=== PATIENT | male | born 1990 | race Caucasian/White ===

== ENCOUNTER 2020-06-03 22:16 | Emergency (ER) | payer OTHER, MEDICAID, SELFPAY ==
--- NOTE | 2020-06-03 22:19 | ED_ITS ---
HPI - Chest Pain General Chief Complaint: Chest Pain Stated Complaint: pain in left arm, wants heart checked Time Seen by Provider: 06/03/20 22:19 Source: patient Mode of arrival: Ambulatory Limitations: no limitations History of Present Illness HPI narrative: 29M smoker with history of HTN presents with a brief episode of left posterior arm pain that resolved prior to his arrival. He states he was resting when the pain came and was without provocation, palliation, or radiation. He denies associated symptoms such as dizziness, weakness, lightheadedness, chest pain, or shortness of breath. He denies any exertional symptoms, diaphoresis or other red flag symptoms. He has had syimilar episodes a few times in the past few years and states he came tonight because he finally has insurance. He denies any overuse or abnormal activities with his left arm. He denies any recent injury. He denies any travel. He has no head or neck pain. MD complaint: other Onset (ago): hour(s) Duration: now resolved Onset: during rest Pain location: other Severity: mild Quality: sharp Pain radiation: none Relieving factors: nothing Exacerbating factors: nothing Treatments prior to arrival chest pain: none Related Data Previous Rx's Medication Instructions Recorded silver sulfadiazine 1 % topical 1 applictn TOP BID #25 gram 09/27/19 cream Allergies Allergy/AdvReac Type Severity Reaction Status Date / Time No Known Drug Allergies Allergy Verified 09/27/19 12:54 Review of Systems Constitutional Constitutional: Denies chills, Denies fatigue, Denies fever(s), Denies frequent falls, Denies lethargy and Denies weakness Eyes Eyes: Denies change in vision, Denies eye discharge, Denies irritation and Denies loss of vision ENT Ears, Nose, Mouth, and Throat: Denies change in voice, Denies dizziness, Denies neck pain, Denies sore throat and Denies throat swelling Cardiovascular Cardiovascular: Denies chest pain, Denies irregular heart rhythm, Denies lightheadedness, Denies palpitations, Denies dyspnea, Denies dyspnea on exertion and Denies orthopnea Respiratory Respiratory: Denies cough, Denies dyspnea, Denies dyspnea on exertion and Denies wheezing Gastrointestinal Gastrointestinal: Denies abdominal pain, Denies change in bowel habits, Denies diarrhea, Denies nausea and Denies vomiting Musculoskeletal Musculoskeletal: Denies neck pain and Denies numbness Comments: Left arm pain Integumentary/Breasts Skin/Breast: Denies pruritus, Denies erythema, Denies rash and Denies wounds Neurologic Neurologic: Denies behavioral changes, Denies confusion, Denies dizziness, Denies frequent falls, Denies loss of vision, Denies numbness and Denies weakness Psychiatric Psychiatric: Denies anxiety, Denies behavioral changes, Denies confusion, Denies depression, Denies homicidal ideation and Denies suicidal ideation Endocrine Endocrine: Denies fatigue, Denies flushing and Denies palpitations Hematologic/Lymphatic Hematologic/Lymphatic: Denies easy bruising Allergic/Immunologic Allergic/Immunologic: Denies urticaria, Denies throat swelling and Denies wheezing Patient History Social History Smoking Status: Current every day smoker Smoking Status: Current every day smoker alcohol intake frequency: 0-2 drinks per day Substance Use Type: does not use Exam Narrative Exam Narrative: GENERAL: [29] year old patient appears stated age. Well- nourished, well-developed patient, in mild distress. HEAD: Atraumatic. Normocephalic. EYES: Pupils equal round and reactive. Extraocular motions intact. No scleral icterus. No injection or drainage. ENT: Nose without bleeding, purulent drainage. Throat without erythema, tonsillar hypertrophy or exudate. Airway patent. NECK: Trachea midline. Non tender CARDIOVASCULAR: Regular rate and rhythm without murmurs, gallops, or rubs. RESPIRATORY: Clear to auscultation. Breath sounds equal bilaterally. No wheezes, rales, or rhonchi. GASTROINTESTINAL: Abdomen soft, non-tender, nondistended. EXTREMITIES: No edema or joint tenderness. BACK: Nontender without deformity or crepitance. No flank tenderness. NEURO: AOx3. SKIN: No rash or erythema of visible areas Initial Vital Signs Initial Vital Signs: Vital Signs Temperature 97.8 F 06/03/20 22:24 Pulse Rate 95 H 06/03/20 22:24 Respiratory Rate 20 06/03/20 22:24 Blood Pressure 172/100 H 06/03/20 22:24 Pulse Oximetry 100 06/03/20 22:24 Course Orders Ordered: ED Orders 06/03/20 22:29 XR chest 2V Stat 06/03/20 22:35 Basic Metabolic Panel Stat Complete Blood Count AUTO DIFF Stat Troponin & CK Cardiac Panel Stat Vital Signs Vital signs: Vital Signs - 8 hr 06/03/20 22:24 06/03/20 22:28 06/03/20 22:30 Temperature 97.8 F Pulse Rate 95 H 94 H 89 Respiratory Rate 20 16 19 Blood Pressure 172/100 H 143/78 H Pulse Oximetry 100 100 100 06/03/20 23:00 06/03/20 23:29 Temperature Pulse Rate 86 73 Respiratory Rate 15 18 Blood Pressure 128/71 128/74 Pulse Oximetry 99 99 MDM - Chest Pain Lab Data Result diagrams: 06/03/20 22:35 06/03/20 22:35 Labs: Lab Results 06/03/20 06/03/20 06/03/20 Range/Units 22:35 22:35 22:35 WBC 11.8 H (4.5-11.0) X10^3/uL RBC 4.97 (4.5-5.9) X10^6/uL Hgb 14.8 (13.5-17.5) g/dL Hct 43.3 (41-53) % MCV 87.0 (80-100) fL MCH 29.8 (26-34) PG MCHC 34.3 (30-36) % RDW 12.8 (11.6-14.8) % Plt Count 275 (150-400) X10^3/uL Neut % (Auto) 52.8 (50-75) % Lymph % (Auto) 34.8 (25-40) % [place] % (Auto) 5.8 (3-14) % Eos % (Auto) 5.9 H (2-4) % Baso % (Auto) 0.7 (0-2) % Neut # (Auto) 6300 (4782-1310) /uL Lymph # (Auto) 4100 (1682-8387) /uL [place] # (Auto) 700 (0-900) /uL Eos # (Auto) 700 H (0-450) /uL Baso # (Auto) 100 (0-100) /uL Sodium 139 (137-145) mmol/L Potassium 4.0 (3.4-5.1) mmol/L Chloride 102 (98-107) mmol/L Carbon Dioxide 29 (22-32) mmol/L BUN 12 (9-20) mg/dL Creatinine 1.07 (0.66-1.25) mg/dL Estimated GFR > 60.0 (>60) mL/min BUN/Creatinine Ratio 11.2 (6-22) Glucose 108 H (70-100) mg/dL Calcium 9.3 (8.4-10.2) mg/dL Total Creatine Kinase 130 (55-170) U/L CK-MB (CK-2) 0.59 (<2.37) ng/mL CK-MB (CK-2) Rel Index 0.5 L (1.5-5.0) % Troponin I < 0.012 (0.01-0.034) ng/mL ECG Data Attestation: I personally reviewed and interpreted this ECG as follows: Prior ECG tracings: not available for review Interpretation: EKG is normal sinus rhythm rate [ 95] and free of any signs of ischemia or ectopy. No ST segmental elevation or depression. No T wave inversions MDM Narrative Medical decision making narrative: Multiple causes of chest pain considered including NE, PE, pneumothorax, pneumonia, aortic dissection, and pleurisy. Patient reports no radiation, no diaphoresis, no provocation with exertion, and no vomiting. Other considerations include infection or blood clot and left arm, this is unlikely given lack of ongoing symptoms, swelling, redness or warmth. Patient's symptoms improved over duration of stay with above-stated therapies. Findings and discharge diagnosis discussed with patient/family followed by verbalization of understanding Return precautions discussed with patient/family whom verbalize understanding. Discharge Plan Departure Patient Disposition: Home Clinical Impression: Arm pain, lateral Qualifiers: Laterality: left Qualified Code(s): M79.602 - Pain in left arm Discharge Date/Time: 06/03/20 23:30 Instructions: DI for Arm Pain Activity Restrictions/Additional Instructions: *You have been diagnosed with [left arm pain, your heart was evaluated and EKG, chest x-ray and lab work are all very reassuring] *What to do: *Take medications as directed: please consider taking a baby aspirin (81mg) daily at least until you can establish care with a local primary care doctor *Please call the number below on Thursday morning (they are closed tomorrow due to the holiday) in order to establish care with a local doctor *Return to ER if you should have any new, worsening or concerning symptoms, such Prescriptions: No Action silver sulfadiazine [Silvadene] 1 % cream 1 applictn TOP BID Qty: 25 RF: 0 Referrals: [facility] [Outside]
[2020-06-03 22:24] VITALS: BP 172/100; PULSE 95; RESP 20; TEMP 36.6; O2SAT 100; BMI 21.7
[2020-06-03 22:28] VITALS: PULSE 94; RESP 16; O2SAT 100
--- NOTE | 2020-06-03 22:29 | DI.RAD.S_ITS ---
PROCEDURE: XR CHEST 2V INDICATIONS: Cardiac workup TECHNIQUE: 2 views of the chest were acquired. COMPARISON: None. FINDINGS: Surgical changes and devices: None. Lungs and pleura: Lungs are clear. No pleural effusions or pneumothorax. Mediastinum: Mediastinal contours are normal. Heart size is normal. Bones and chest wall: No suspicious bony abnormalities. Soft tissues appear unremarkable. IMPRESSION: Normal chest plain films. Dictated by: Morgan August M.D. on 06/04/2020 at 8:38 Approved by: Morgan August M.D. on 06/04/2020 at 8:38
[2020-06-03 22:30] VITALS: BP 143/78; PULSE 89; RESP 19; O2SAT 100
[2020-06-03 22:45] LABS: Add Manual Diff / Slide Review NO; Basophils Absolute Auto 100 /uL (0-100); Basophils Percent Auto 0.7 % (0-2); Eosinophils Absolute Auto 700 /uL (0-450); Eosinophils Percent Auto 5.9 % (2-4); Hematocrit 43.3 % (41-53); Hemoglobin 14.8 g/dL (13.5-17.5); Lymphocytes Absolute Auto 4100 /uL (1100-4500); Lymphocytes Percent Auto 34.8 % (25-40); Mean Corpuscular HGB Conc 34.3 % (30-36); Mean Corpuscular Hemoglobin 29.8 PG (26-34); Monocytes Absolute Auto 700 /uL (0-900); Monocytes Percent Auto 5.8 % (3-14); Neutrophils Absolute Auto 6300 /uL (1500-7000); Neutrophils Percent Auto 52.8 % (50-75); Platelet Count 275 X10^3/uL (150-400); Red Blood Cell Count 4.97 X10^6/uL (4.5-5.9); Red Cell Distribution Width 12.8 % (11.6-14.8); White Blood Cell Count 11.8 X10^3/uL (4.5-11.0)
[2020-06-03 22:57] LABS: BUN Creatinine Ratio 11.2 (6-22); Blood Urea Nitrogen 12 mg/dL (9-20); Calcium 9.3 mg/dL (8.4-10.2); Carbon Dioxide 29 mmol/L (22-32); Chloride 102 mmol/L (98-107); Creatine Kinase 130 U/L (55-170); Estimated Glomerular Filt Rate > 60.0 mL/min (>60); Glucose 108 mg/dL (70-100); HEMOLYSIS < 15 (0-50); Sodium 139 mmol/L (137-145)
[2020-06-03 23:00] VITALS: BP 128/71; PULSE 86; RESP 15; O2SAT 99
[2020-06-03 23:09] LABS: Troponin I < 0.012 ng/mL (0.01-0.034)
[2020-06-03 23:12] LABS: CKMB % Relative Index 0.5 % (1.5-5.0); Creatine Kinase MB 0.59 ng/mL (<2.37)
[2020-06-03 23:29] VITALS: BP 128/74; PULSE 73; RESP 18; O2SAT 99
== END 2020-06-03 23:30 | disposition home or self-care (01) ==
PROVIDERS: Emergency Provider Emergency Medicine
DX: M79.602 Pain in left arm (principal); R07.9 Chest pain, unspecified
CPT/HCPCS: 71046; 80048; 82550; 82553; 84484; 85025; 93005; 99283; 99284